=== PATIENT | male | born 1945 | race Caucasian/White ===

== ENCOUNTER 2019-07-15 12:15 | Emergency (ER) | payer MEDICARE, MEDICAID ==
[~2019-07-15] VITALS: Ht 180.3 cm; Wt 89.5 kg
--- NOTE | 2019-07-15 12:27 | ED Lower Extremity ---
General Chief Complaint: Trauma-Non Activation Stated Complaint: FALL Source: patient Exam Limitations: no limitations History of Present Illness Date Seen by Provider: Jul 15, 2019 Time Seen by Provider: 12:24 Initial Comments This 74-year-old male presents after he became tangled in the sheets and fell out of bed striking his right leg on the floor. Patient has a hematoma over the lateral aspect of the right leg and this is where his pain is located. Patient denies loss of sensation or range of motion of the affected right lower extremity. He denies other injury to his accident. Allergies and Home Medications Allergies Coded Allergies: No Known Drug Allergies (Unverified , 07/15/19) Patient Home Medication List Home Medication List Reviewed: Yes Review of Systems Constitutional: No chills EENTM: No ear pain Respiratory: No cough Cardiovascular: No chest pain Gastrointestinal: no symptoms reported Genitourinary: no symptoms reported Musculoskeletal: see HPI, other (leg pain over the impact area.) Skin: see HPI, other (ecchymosis over the lateral aspect midportion of the right leg) Psychiatric/Neurological: No Symptoms Reported Past Itgykum-Hrmwnf-Xnirjc Hx Past Med/Social Hx: Reviewed Nursing Past Med/Soc Hx Physical Exam Vital Signs Vital Signs - First Documented 07/15/19 12:15 Temp 98.1 Pulse 110 Resp 20 B/P (MAP) 138/74 (95) Pulse Ox 97 O2 Delivery Room Air Capillary Refill : Height, Weight, BMI Height: '" Weight: lbs. oz. kg; BMI Method: General Appearance: WD/WN, no apparent distress HEENT: normal ENT inspection Neck: normal inspection Cardiovascular: regular rate, rhythm Respiratory: lungs clear Gastrointestinal: normal bowel sounds, soft Back: normal inspection, vertebral tenderness Legs: right leg other (hematoma right leg lateral aspect) Neurologic/Psychiatric: no motor/sensory deficits, alert, normal mood/affect Skin: normal color, warm/dry, ecchymosis (lateral aspect right leg midportion) Progress/Results/Core Measures Results/Orders My Orders Orders - FELICIA ROLLINS MD Tibia Fibula 2 View Right (07/15/19 12:23) Vital Signs/I&O 07/15/19 12:15 Temp 98.1 Pulse 110 Resp 20 B/P (MAP) 138/74 (95) Pulse Ox 97 O2 Delivery Room Air Progress Progress Note : Time: 13:13 Progress Note X-ray of the right tibia and fibula failed to demonstrate evidence of fracture or dislocation. Departure Impression Primary Impression: Contusion of right leg Qualified Codes: S80.11XA - Contusion of right lower leg, initial encounter Disposition: HOME, SELF-CARE Condition: Unchanged Departure-Patient Inst. Decision time for Depature: 13:14 Referrals: [facility] Patient Instructions: Contusion (DC) Add. Discharge Instructions: Elevation and moist heat to the right leg. Ibuprofen and/or Tylenol for pain. Close follow-up with [facility] on Tuesday. Return if any problems or questions. All discharge instructions reviewed with patient and/or family. Voiced understanding. FELICIA ROLLINS MD Jul 15, 2019 12:27
--- NOTE | 2019-07-15 14:13 | Diagnostic Imaging Report ---
EXAMINATION: Right tibia and fibula radiographs, 2 views. COMPARISON: None. HISTORY: 74-year-old male, fall. Right tibia and fibula pain. FINDINGS: There are vascular calcifications. There is a small calcaneal heel spur. There is no identified acute fracture. There is no identified radiopaque foreign body. IMPRESSION: 1. No identified acute bony abnormality of the right tibia or fibula. 2. 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 Dictated by: Dictated on workstation # [id number]
[2019-07-15 14:30] VITALS: BP 138/74
== END 2019-07-15 14:30 | disposition home or self-care (01) ==
LOC: EDUNIT# 12:15 → ER FS 12:17
DX: S80.11XA Contusion of right lower leg, initial encounter (principal); W06.XXXA Fall from bed, initial encounter; W22.8XXA Striking against or struck by other objects, initial encounter
CPT/HCPCS: 73590

== ENCOUNTER 2021-04-05 21:40 | Emergency (ER) | payer MEDICARE, MEDICAID ==
--- NOTE | 2021-04-05 21:42 | ED Dyspnea ---
General Stated Complaint: SOB History of Present Illness Date Seen by Provider: April 05, 2021 Time Seen by Provider: 21:42 Initial Comments 76-year-old male presents with shortness of breath. Patient is on chronic 3 L of oxygen at home. Patient continues to smoke.. EMS reports that the home health care worker states that start about 2 hours prior to them being called. Patient is poor historian with some mild dementia. No reports of any chest pain. EMS reports patient did not appear short of breath upon arrival. His oxy gen saturations been in the upper 90s on his baseline 3 L. Allergies and Home Medications Allergies Coded Allergies: No Known Drug Allergies (Unverified , 07/15/19) Home Medications Albuterol Sulfate 18 Gm Hfa.aer.ad, 18 GM INH PRN Take 2 puffs every 4 hours as needed for wheezing or shortness of breath Prescribed by: LEONEL ORTIZ on 04/05/212329 Furosemide 20 Mg Tablet, 20 MG PO DAILY Please take in the morning Prescribed by: LEONEL ORTIZ on 04/05/212329 Prednisone 20 Mg Tab, 40 MG PO DAILY Prescribed by: LEONEL ORTIZ on 04/05/212329 Patient Home Medication List Home Medication List Reviewed: Yes Review of Systems Review of Systems Constitutional: No chills, No fever Respiratory: cough, short of breath Cardiovascular: No chest pain, No edema, No palpitations Musculoskeletal: no symptoms reported Skin: no symptoms reported Psychiatric/Neurological: No Symptoms Reported Past Loavdqi-Zqkhpi-Czglgl Hx Past Med/Social Hx: Reviewed Nursing Past Med/Soc Hx Patient Social History Type Used: Cigarettes 2nd Hand Smoke Exposure: No Recent Hopitalizations: No Immunizations Up To Date Tetanus Booster (TDap): Unknown Date of Pneumonia Vaccine: Jan 20, 2018 Seasonal Allergies Seasonal Allergies: No Past Medical History Surgeries: Yes (Cystoscopy, Cyst removal from left shoulder) Respiratory: Yes COPD Cardiac: Yes High Cholesterol, Hypertension Stroke, TIA Genitourinary: Yes (Chronic Kidney Disease Stage 3) Benign Prostatic Hyperpl, Renal Failure Gastrointestinal: No Musculoskeletal: No Endocrine: Yes Diabetes, Insulin dep HEENT: No Cancer: No Psychosocial: No Integumentary: No Blood Disorders: No Physical Exam Vital Signs Vital Signs - First Documented 04/05/21 21:40 Temp 37.1 Pulse 115 Resp 22 B/P (MAP) 147/65 (92) Pulse Ox 96 O2 Delivery Nasal Cannula O2 Flow Rate 3.00 Capillary Refill : Height, Weight, BMI Height: 5'11.00" Weight: 197lbs. 4.0oz. 89.665372ky; BMI Method:Actual General Appearance: No Apparent Distress, Other (disheveled, chronically ill ) Respiratory: Decreased Breath Sounds (mild diffuse ), Wheezing (mild ) Cardiovascular: No Edema, Tachycardia Gastrointestinal: Non Tender, Soft Extremity: Normal Range of Motion, No Pedal Edema Neurologic/Psychiatric: Alert, No Motor/Sensory Deficits Skin: No Rash; Other (unkept, dirty ) Progress/Results/Core Measures Results/Orders Lab Results Laboratory Tests Test 04/05/21 21:48 04/05/21 23:10 Range/Units White Blood Count 9.1 4.3-11.0 10^3/uL Red Blood Count 4.52 4.35-5.85 10^6/uL Hemoglobin 14.4 13.3-17.7 G/DL Hematocrit 44 40-54 % Mean Corpuscular Volume 98 80-99 FL Mean Corpuscular Hemoglobin 32 25-34 PG Mean Corpuscular Hemoglobin Concent 33 32-36 G/DL Red Cell Distribution Width 14.9 H 10.0-14.5 % Platelet Count 188 130-400 10^3/uL Mean Platelet Volume 8.7 7.4-10.4 FL Immature Granulocyte % (Auto) 1 % Neutrophils (%) (Auto) 72 42-75 % Lymphocytes (%) (Auto) 16 12-44 % Monocytes (%) (Auto) 9 0-12 % Eosinophils (%) (Auto) 2 0-10 % Basophils (%) (Auto) 0 0-10 % Neutrophils # (Auto) 6.6 1.8-7.8 X 10^3 Lymphocytes # (Auto) 1.5 1.0-4.0 X 10^3 Monocytes # (Auto) 0.8 0.0-1.0 X 10^3 Eosinophils # (Auto) 0.2 0.0-0.3 10^3/uL Basophils # (Auto) 0.0 0.0-0.1 10^3/uL Immature Granulocyte # (Auto) 0.1 0.0-0.1 10^3/uL Sodium Level 136 135-145 MMOL/L Potassium Level 5.3 H 3.6-5.0 MMOL/L Chloride Level 100 98-107 MMOL/L Carbon Dioxide Level 26 21-32 MMOL/L Anion Gap 10 5-14 MMOL/L Blood Urea Nitrogen 31 H 7-18 MG/DL Creatinine 1.67 H 0.60-1.30 MG/DL Estimat Glomerular Filtration Rate 40 BUN/Creatinine Ratio 19 Glucose Level 194 H 70-105 MG/DL Calcium Level 9.3 8.5-10.1 MG/DL Corrected Calcium 9.2 8.5-10.1 MG/DL Total Bilirubin 0.2 0.1-1.0 MG/DL Aspartate Amino Transf (AST/SGOT) 16 5-34 U/L Alanine Aminotransferase (ALT/SGPT) 16 0-55 U/L Alkaline Phosphatase 95 40-136 U/L Troponin I < 0.30 < 0.30 <0.30 NG/ML Pro-B-Type Natriuretic Peptide 1493.0 H <75.0 PG/ML Total Protein 7.1 6.4-8.2 GM/DL Albumin 4.1 3.2-4.5 GM/DL My Orders Orders - ORTIZ,LEONEL L DO Chest 1 View Ap/Pa Only (04/05/21 21:45) Cbc With Automated Diff (04/05/21 21:45) Comprehensive Metabolic Panel (04/05/21 21:45) Probnp Fs (04/05/21 21:45) Ekg Tracing (04/05/21 21:45) Monitor-Rhythm Ecg Trace Only (04/05/21 21:45) Troponin I Fs (04/05/21 21:45) Ed Iv/Invasive Line Start (04/05/21 21:50) Albuterol/Ipra Inhalation Soln (Duoneb I (04/05/21 22:00) Svn Small Volume Nebulizer (04/05/21 21:53) Nitroglycerin 0.4 Mg Btl 25's (Nitrostat (04/05/21 22:30) Troponin I Fs (04/05/21 23:06) Albuterol Pre-Mix Nebs (Rt) (Proventil (04/05/21 23:15) Svn Small Volume Nebulizer (04/05/21 23:06) Methylprednisolone Sod Succ (Solu-Medrol (04/05/21 23:15) Medications Given in ED Current Medications Medications Dose Ordered Sig/Mika Route Start Time Stop Time Status Last Admin Dose Admin Albuterol Sulfate 2.5 mg ONCE ONCE INH 04/05/21 23:15 04/05/21 23:16 DC 04/05/21 23:17 2.5 MG Albuterol/ Ipratropium 3 ml ONCE ONCE INH 04/05/21 22:00 04/05/21 22:01 DC 04/05/21 22:00 3 ML Methylprednisolone Sodium Succinate 80 mg ONCE ONCE IV 04/05/21 23:15 04/05/21 23:16 DC 04/05/21 23:17 80 MG Vital Signs/I&O 04/05/21 21:40 Temp 37.1 Pulse 115 Resp 22 B/P (MAP) 147/65 (92) Pulse Ox 96 O2 Delivery Nasal Cannula O2 Flow Rate 3.00 Progress Progress Note : Progress Note Patient symptoms improved significantly with DuoNeb. Patient's EKG shows diffuse ST depression that is likely old, I do not have a prior EKG to compare to. Patient denies any signs of chest pain or any recent chest pain. Patient will be given an albuterol inhaler along with 20 mg Lasix x3 days. He should follow-up with a primary care provider in a couple days. Patient is doing much better and ready to be discharged home. Initial ECG Impression Date: April 05, 2021 Initial ECG Impression Time: 21:49 Initial ECG Rate: 107 Initial ECG Rhythm: S.Tach, PVC Comment diffuse st depression, unsure age. Diagnostic Imaging Diagonstic Imaging: Xray Plain Films/CT/US/NM/MRI: chest Comments Mild pulmonary edema Reviewed: Reviewed by Me Departure Impression Primary Impression: COPD (chronic obstructive pulmonary disease) Qualified Codes: J44.9 - Chronic obstructive pulmonary disease, unspecified Additional Impression: Pulmonary edema Qualified Codes: J81.0 - Acute pulmonary edema Disposition: HOME, SELF-CARE Condition: Stable Departure-Patient Inst. Referrals: NO,LOCAL PHYSICIAN (PCP/Family) Primary Care Physician Patient Instructions: Chronic Obstructive Pulmonary Disease (COPD) (DC), CHF Add. Discharge Instructions: Follow-up with your primary care provider in 2 to 3 days for recheck of your symptoms and further outpatient manage Scripts Prednisone (Prednisone) 20 Mg Tab 40 MG PO DAILY, #6 TAB 0 Refills Prov: LEONEL ORTIZ DO 04/05/21 Albuterol Sulfate (Ventolin Hfa) 18 Gm Hfa.aer.ad 18 GM INH PRN for Shortness of Breath, #1 EA Take 2 puffs every 4 hours as needed for wheezing or shortness of breath Prov: LEONEL ORTIZ DO 04/05/21 Furosemide (Lasix) 20 Mg Tablet 20 MG PO DAILY for 3 Days, #3 TAB Please take in the morning Prov: LEONEL ORTIZ DO 04/05/21 LEONEL ORTIZ DO April 05, 2021 21:42
[2021-04-05 21:55] LABS: BASOPHILS % (AUTO) 0 % (0-10); EOSINOPHILS # (AUTO) 0.2 10^3/uL (0.0-0.3); EOSINOPHILS % (AUTO) 2 % (0-10); HEMATOCRIT 44 % (40-54); HEMOGLOBIN 14.4 G/DL (13.3-17.7); LYMPHOCYTES # (AUTO) 1.5 X 10^3 (1.0-4.0); LYMPHOCYTES % (AUTO) 16 % (12-44); MEAN CORPUSCULAR HEMOGLOBIN 32 PG (25-34); MEAN CORPUSCULAR HGB CONC 33 G/DL (32-36); MEAN CORPUSCULAR VOLUME 98 FL (80-99); MEAN PLATELET VOLUME 8.7 FL (7.4-10.4); MONOCYTES # (AUTO) 0.8 X 10^3 (0.0-1.0); MONOCYTES % (AUTO) 9 % (0-12); NEUTROPHILS # (AUTO) 6.6 X 10^3 (1.8-7.8); NEUTROPHILS % (AUTO) 72 % (42-75); PLATELET COUNT 188 10^3/uL (130-400); WHITE BLOOD COUNT 9.1 10^3/uL (4.3-11.0)
[2021-04-05] MEDS ORDERED: RT-ALBUTEROL/IPRATROPIUM 3 ML (DUONEB) VIAL INH ONE (22:00)
[2021-04-05 22:13] LABS: ALANINE AMINOTRANSFERASE 16 U/L (0-55); ALBUMIN 4.1 GM/DL (3.2-4.5); ALKALINE PHOSPHATASE 95 U/L (40-136); BILIRUBIN,TOTAL 0.2 MG/DL (0.1-1.0); BUN/CREATININE RATIO 19; CALCIUM 9.3 MG/DL (8.5-10.1); CARBON DIOXIDE 26 MMOL/L (21-32); CHLORIDE 100 MMOL/L (98-107); CREATININE SERUM 1.67 MG/DL (0.60-1.30); GFR ESTIMATED 40; GLUCOSE 194 MG/DL (70-105); POTASSIUM 5.3 MMOL/L (3.6-5.0); SODIUM 136 MMOL/L (135-145); TOTAL PROTEIN 7.1 GM/DL (6.4-8.2)
[2021-04-05] MEDS ORDERED: NITROGLYCERIN 0.4 MG SL TABS BTL 25'S SL ONE (22:30)
[2021-04-05] MEDS ORDERED: RT-ALBUTEROL SULF 2.5 MG/3 ML PRE-MIX VIAL INH ONE (23:15)
[2021-04-05] MEDS ORDERED: methylPREDNISolone 40 MG/ML (Solu-MEDROL) VIAL IV ONE (23:15)
[2021-04-05] MEDS ORDERED: FURO-125 PO (23:30)
[2021-04-05] MEDS ORDERED: ALBU18HF2 INH (23:30)
[2021-04-05] MEDS ORDERED: PRD20T PO (23:30)
[2021-04-05 23:54] VITALS: BP 104/39
[2021-04-06] MEDS ORDERED: RT-ALBUTEROL/IPRATROPIUM 3 ML (DUONEB) VIAL ONE (05:06)
--- NOTE | 2021-04-06 05:32 | Diagnostic Imaging Report ---
INDICATION: Shortness of air. COMPARISON: None FINDINGS: Two frontal radiographic views of the chest were obtained and show borderline prominent cardiac silhouette and mildly prominent pulmonary vasculature. Lungs also show mild diffuse prominence of the interstitium. Marco A B-lines are noted. There is no large effusion or pneumothorax. Osseous structures show no gross acute abnormalities. IMPRESSION: 1. Borderline cardiomegaly with mild vascular congestion and probable interstitial pulmonary edema. Findings are concerning for CHF. Clinical correlation is advised. Dictated by: Dictated on workstation # [id number]
[2021-04-06] MEDS ORDERED: LINA5TAB PO (16:11)
[2021-04-06] MEDS ORDERED: CLOP75TA28 PO (16:11)
[2021-04-06] MEDS ORDERED: AMLO-250 PO (16:11)
[2021-04-06] MEDS ORDERED: NABU500T8 PO (16:11)
[2021-04-06] MEDS ORDERED: LISI20TA26 PO (16:11)
[2021-04-06] MEDS ORDERED: LIRA0.6P3 SC (16:11)
[2021-04-06] MEDS ORDERED: MONT10TA32 PO (16:11)
[2021-04-06] MEDS ORDERED: FINA5TAB6 PO (16:11)
[2021-04-06] MEDS ORDERED: DONE5TAB30 PO (16:11)
[2021-04-06] MEDS ORDERED: TMSL.4C PO (16:11)
[2021-04-06] MEDS ORDERED: SIMV40TA25 PO (16:12)
== END 2021-04-06 00:15 | disposition home or self-care (01) ==
LOC: ER FS 21:40
DX: J44.9 Chronic obstructive pulmonary disease, unspecified (principal); J81.1 Chronic pulmonary edema; R00.0 Tachycardia, unspecified; I12.9 Hypertensive chronic kidney disease with stage 1 through stage 4 chronic kidney disease, or unspecified chronic kidney disease; E11.22 Type 2 diabetes mellitus with diabetic chronic kidney disease; N18.30 Chronic kidney disease, stage 3 unspecified; F03.90 Unspecified dementia, unspecified severity, without behavioral disturbance, psychotic disturbance, mood disturbance, and anxiety; Z99.81 Dependence on supplemental oxygen
CPT/HCPCS: 36415; 71045; 80053; 83880; 84484; 85025; 93005; 93041

== ENCOUNTER 2021-04-06 05:02 | Inpatient (IN) | payer MEDICARE, MEDICAID ==
[~2021-04-06] VITALS: Ht 180.3 cm; Wt 92.4 kg
[~2021-04-06 05:02] MED LIST: ALBU18HF2 INH; FURO-125 PO; PRD20T PO
--- NOTE | 2021-04-06 05:16 | ED Dyspnea ---
General Stated Complaint: SOB History of Present Illness Date Seen by Provider: April 06, 2021 Time Seen by Provider: 05:16 Initial Comments 76-year-old male presents with increasing shortness of breath. Patient seen by me last evening. At that time patient had some mild pulmonary edema and COPD mixed. Patient was feeling fine and was discharged home. Throughout the night patient's his symptoms significantly worsened with the symptoms significant worsen over the last hour or 2. When EMS arrived patient was sitting there s moking with a pulse ox in the low 70s. Patient is severely more increased work of breathing than when he was discharged. Patient received an albuterol in route. Patient denies chest pain. Allergies and Home Medications Allergies Coded Allergies: No Known Drug Allergies (Unverified , 07/15/19) Home Medications Albuterol Sulfate 18 Gm Hfa.aer.ad, 18 GM INH PRN Take 2 puffs every 4 hours as needed for wheezing or shortness of breath Prescribed by: LEONEL ORTIZ on 04/05/212329 Furosemide 20 Mg Tablet, 20 MG PO DAILY Please take in the morning Prescribed by: LEONEL ORTIZ on 04/05/212329 Prednisone 20 Mg Tab, 40 MG PO DAILY Prescribed by: LEONEL ORTIZ on 04/05/212329 Patient Home Medication List Home Medication List Reviewed: Yes Review of Systems Review of Systems Constitutional: No chills Respiratory: cough, dyspnea on exertion, short of breath Cardiovascular: No chest pain, No palpitations Genitourinary: no symptoms reported Musculoskeletal: no symptoms reported Skin: no symptoms reported Psychiatric/Neurological: No Symptoms Reported Past Woxadpx-Idiqyu-Lrcfqb Hx Past Med/Social Hx: Reviewed Nursing Past Med/Soc Hx Patient Social History Type Used: Cigarettes 2nd Hand Smoke Exposure: No Recent Hopitalizations: No Immunizations Up To Date Tetanus Booster (TDap): Unknown Date of Pneumonia Vaccine: Jan 20, 2018 Seasonal Allergies Seasonal Allergies: No Past Medical History Surgeries: Yes (Cystoscopy, Cyst removal from left shoulder) Respiratory: Yes COPD Cardiac: Yes High Cholesterol, Hypertension Stroke, TIA Genitourinary: Yes (Chronic Kidney Disease Stage 3) Benign Prostatic Hyperpl, Renal Failure Gastrointestinal: No Musculoskeletal: No Endocrine: Yes Diabetes, Insulin dep HEENT: No Cancer: No Psychosocial: No Integumentary: No Blood Disorders: No Physical Exam Vital Signs Vital Signs - First Documented 04/06/21 05:12 Temp 36.1 Pulse 150 Resp 30 B/P (MAP) 128/78 (95) Pulse Ox 84 O2 Delivery Nasal Cannula O2 Flow Rate 6.00 Capillary Refill : Height, Weight, BMI Height: 5'11.00" Weight: 197lbs. 4.0oz. 89.756884if; BMI Method:Actual General Appearance: Moderate Distress Respiratory: Accessory Muscle Use, Decreased Breath Sounds Cardiovascular: Tachycardia Gastrointestinal: Non Tender, Soft Neurologic/Psychiatric: Alert, Normal Mood/Affect Focused Exam Lactate Level 04/06/21 05:45: Lactic Acid Level 2.38*H Lactic Acid Level Laboratory Tests Test 04/06/21 05:45 Lactic Acid Level 2.38 MMOL/L (0.50-2.00) *H Progress/Results/Core Measures Results/Orders Lab Results Laboratory Tests Test 04/06/21 05:23 04/06/21 05:41 04/06/21 05:45 Range/Units Troponin I 0.46 *H <0.30 NG/ML Blood Gas Puncture Site LEFT RADIAL Blood Gas Patient Temperature Arterial Blood pH 7.20 *L 7.37-7.43 Arterial Blood Partial Pressure CO2 57 H 35-45 MMHG Arterial Blood Partial Pressure O2 86 79-93 MMHG Arterial Blood HCO3 22 L 23-27 MMOL/L Arterial Blood Total CO2 24.0 21.0-31.0 MMOL/L Arterial Blood Oxygen Saturation 94 94-100 % Arterial Blood Base Excess -6.3 L -2.5-2.5 MMOL/L Malvin Test OK Blood Gas Ventilator Setting Blood Gas Inspired Oxygen 80 Lactic Acid Level 2.38 *H 0.50-2.00 MMOL/L My Orders Orders - ANGELLEONEL L DO Arterial Blood Gas (04/06/21 05:16) Troponin I Fs (04/06/21 05:16) Albuterol/Ipra Inhalation Soln (Duoneb I (04/06/21 05:30) Svn Small Volume Nebulizer (04/06/21 05:16) Bipap (Bilevel) Set Up (04/06/21 05:16) Chest 1 View Ap/Pa Only (04/06/21 05:16) Adenosine Injection (Adenocard Injection (04/06/21 05:30) Ns (Ivpb) (Sodium Chloride 0.9%) (04/06/21 05:23) Ed Iv/Invasive Line Start (04/06/21 05:34) Ns (Ivpb) (Sodium Chloride 0.9%) (04/06/21 05:45) Lactic Acid Analyzer (04/06/21 05:34) Blood Culture (04/06/21 05:34) Ceftriaxone For Iv Use (Rocephin For I (04/06/21 05:45) Azithromycin Injection (Zithromax Inject (04/06/21 05:45) Nitroglycerin 0.4 Mg Btl 25's (Nitrostat (04/06/21 05:42) Ekg Tracing (04/06/21 05:58) Ekg Tracing (04/06/21 06:02) Aspirin Chewable Tablet (Baby Aspirin Ch (04/06/21 06:15) Enoxaparin Injection (Lovenox Injection) (04/06/21 06:15) Arterial Blood Gas (04/06/21 06:11) Medications Given in ED Current Medications Medications Dose Ordered Sig/Mika Route Start Time Stop Time Status Last Admin Dose Admin Albuterol/ Ipratropium 3 ml ONCE ONCE INH 04/06/21 05:30 04/06/21 05:31 DC 04/06/21 05:28 3 ML Aspirin 324 mg ONCE ONCE PO 04/06/21 06:15 04/06/21 06:16 DC 04/06/21 06:15 324 MG Azithromycin 500 mg/Sodium Chloride 255 ml @ 250 mls/hr ONCE ONCE IV 04/06/21 05:45 04/06/21 06:46 04/06/21 05:52 250 MLS/HR Ceftriaxone Sodium 1000 mg/ Sterile Water 10 ml @ 200 mls/hr ONCE ONCE IV 04/06/21 05:45 04/06/21 05:47 DC 04/06/21 05:49 200 MLS/HR Enoxaparin Sodium 75 mg ONCE ONCE SC 04/06/21 06:15 04/06/21 06:16 DC 04/06/21 06:15 75 MG Sodium Chloride 250 ml @ 999 mls/hr Q16M ONCE IV 04/06/21 05:45 04/06/21 06:00 DC 04/06/21 05:48 999 MLS/HR Vital Signs/I&O 04/06/21 04/06/21 04/06/21 05:12 05:35 06:34 Temp 36.1 Pulse 150 115 Resp 30 26 B/P (MAP) 128/78 (95) 98/57 Pulse Ox 84 99 O2 Delivery Nasal Cannula NIV Bilevel O2 Flow Rate 6.00 80.00 Progress Progress Note : Progress Note Patient with significantly worsening x-ray. Patient with increased ischemia on EKG that is likely demand ischemia. Patient was placed on BiPAP. His O2 saturations improved to 97%. He felt much better and was fatigued. Patient continually denies chest pain. Patient with mixed picture of pneumonia and CHF. He will be admitted to [facility] ICU for further treatment evaluation. I discussed with Dr. Abraham who was in agreement with plan. Initial ECG Impression Date: April 06, 2021 Initial ECG Impression Time: 05:16 Initial ECG Rhythm: S.Tach Comment Tachycardia, diffuse ST depression. EKG : EKG Time: 06:00 Rate: 119 Rhythm: S.Tach Comment Patient with sinus tachycardia, diffuse ST depression likely demand ischemia. QTC slightly prolonged at 410. Diagnostic Imaging Diagonstic Imaging: Xray Comments DICATION: Dyspnea COMPARISON: 04/05/2021 FINDINGS: Single frontal radiographic view of the chest was obtained and demonstrates interval development of more consolidative alveolar opacities within the right midlung. There may be small right basilar effusion. There is no large effusion on the left. No pneumothorax is seen on either side. Note is again made of borderline enlargement of the cardiac silhouette with pulmonary vascular congestion and probable interstitial pulmonary edema. IMPRESSION: 1. Interval development of more confluent alveolar pneumonia versus pulmonary edema in the right midlung. Continued follow-up is recommended. 2. Background borderline cardiomegaly with vascular congestion and interstitial edema. Reviewed: Reviewed by Me, Reviewed/Discussed Critical Care Note Critical Care Total Time (minutes) 60 Departure Impression Primary Impression: Pneumonia Qualified Codes: J18.9 - Pneumonia, unspecified organism Additional Impression: Pulmonary edema cardiac cause Disposition: 30 STILL A PATIENT Condition: Critical Admissions Decision to Admit Reason: Admit from ER (General) Decision to Admit/Date: April 06, 2021 Time/Decision to Admit Time: 06:15 Departure-Patient Inst. Referrals: [facility] (PCP/Family) Primary Care Physician LEONEL ORTIZ DO April 06, 2021 05:16
[2021-04-06] MEDS ORDERED: NS (IVPB) 250 ML ONE (05:23)
[2021-04-06] MEDS: ADENOSINE 6 MG/2 ML (ADENOCARD) VIAL IV ONE ×2 (05:28→06:37)
[2021-04-06] MEDS ORDERED: RT-ALBUTEROL/IPRATROPIUM 3 ML (DUONEB) VIAL INH ONE (05:30)
--- NOTE | 2021-04-06 05:40 | Diagnostic Imaging Report ---
INDICATION: Dyspnea COMPARISON: 04/05/2021 FINDINGS: Single frontal radiographic view of the chest was obtained and demonstrates interval development of more consolidative alveolar opacities within the right midlung. There may be small right basilar effusion. There is no large effusion on the left. No pneumothorax is seen on either side. Note is again made of borderline enlargement of the cardiac silhouette with pulmonary vascular congestion and probable interstitial pulmonary edema. IMPRESSION: 1. Interval development of more confluent alveolar pneumonia versus pulmonary edema in the right midlung. Continued follow-up is recommended. 2. Background borderline cardiomegaly with vascular congestion and interstitial edema. Dictated by: Dictated on workstation # [id number]
[2021-04-06] MEDS ORDERED: NITROGLYCERIN 0.4 MG SL TABS BTL 25'S SL STA (05:42)
[2021-04-06] MEDS ORDERED: AZITHROMYCIN INJECTION 500 MG in NS (IVPB) 250 ML IV ONE (05:45)
[2021-04-06] MEDS ORDERED: cefTRIAXone FOR IV USE 1,000 MG in WATER (STERILE) FOR INJECTION 10 ML IV ONE (05:45)
[2021-04-06] MEDS ORDERED: NS (IVPB) 250 ML IV ONE (05:45)
[2021-04-06] MEDS ORDERED: ENOXAPARIN 80 MG/0.8 ML (LOVENOX) SYR SC ONE (06:15)
[2021-04-06] MEDS ORDERED: ASPIRIN 81 MG CHEW (CHILDREN'S ASA) PO ONE (06:15)
[2021-04-06 06:21] LABS: ABG BASE EXCESS -6.3 MMOL/L (-2.5-2.5); ABG OXYGEN SATURATION 94 % (94-100); ABG PCO2 57 MMHG (35-45); ABG PO2 86 MMHG (79-93); ALLENS TEST OK
[2021-04-06 06:22] LABS: INSPIRED O2 80
[2021-04-06 08:37] VITALS: BP 137/68
[2021-04-06 08:46] LABS: ABG BASE EXCESS -4.5 MMOL/L (-2.5-2.5); ABG OXYGEN SATURATION 93 % (94-100); ABG PCO2 43 MMHG (35-45); ABG PO2 71 MMHG (79-93); ABG TCO2 22.3 MMOL/L (21.0-31.0)
[2021-04-06 08:49] LABS: ALLENS TEST YES-POS
[2021-04-06 08:50] LABS: INSPIRED O2 30%; PATIENT TEMP 36.4; VENTILATOR NO
--- NOTE | 2021-04-06 09:09 | Pulmonary Consultation ---
HERIBERTO AUSTIN MED STUDENT 04/06/21 0909: History of Present Illness History of Present Illness Date Seen by Provider: April 06, 2021 Time Seen by Provider: 09:06 Date of Admission History of Present Illness Patient is a 76 year old white male who presented to the ED again this morning via EMS after presenting last night to the ED for chief complaint of SOB as well. He states that since leaving the ED last night and going home his SOB has acutely worsened and began having more difficulty breathing. When EMS arrived he was found to be sitting and smoking and his initial oxygen sat was in the low 70's. En route he received an albuterol treatment. Patient admitted with a diagnosis of pneumonia and CHF. Patient is difficult to understand at this time as he's on the BIPAP, but is cooperative and able to follow simple commands. States his mouth is dry and would like some water. Is denying chest pain, cough, fevers, chills, nausea, and vomiting. Allergies and Home Medications Allergies Coded Allergies: No Known Drug Allergies (Unverified , 07/15/19) Home Medications Amlodipine Besylate 5 Mg Tablet, 5 MG PO DAILY, (Reported) Clopidogrel Bisulfate 75 Mg Tablet, 75 MG PO DAILY, (Reported) Donepezil HCl 5 Mg Tablet, 5 MG PO HS, (Reported) Finasteride 5 Mg Tablet, 5 MG PO DAILY, (Reported) Linagliptin 5 Mg Tablet, 5 MG PO DAILY, (Reported) Liraglutide 0.6 Mg/0.1 Ml Pen.injctr, 1.2 MG SC DAILY, (Reported) Lisinopril 20 Mg Tablet, 20 MG PO DAILY, (Reported) Montelukast Sodium 10 Mg Tablet, 10 MG PO HS, (Reported) Nabumetone 500 Mg Tablet, 500 MG PO BID, (Reported) Simvastatin 40 Mg Tablet, 40 MG PO HS, (Reported) Tamsulosin HCl 0.4 Mg Cap, 0.4 MG PO DAILY, (Reported) Past Qxqvucd-Ujhwxr-Fzgrlq Hx Past Med/Social Hx: Reviewed Nursing Past Med/Soc Hx Patient Social History Alcohol Use: Denies Use Smoking Status: Current Everyday Smoker Type Used: Cigarettes 2nd Hand Smoke Exposure: No Recent Infectious Disease Expo: No Recent Hopitalizations: No Have you traveled recently?: No Alcohol Use?: No Immunizations Up To Date Tetanus Booster (TDap): Unknown Date of Pneumonia Vaccine: Jan 20, 2018 Date of Influenza Vaccine: Aug 14, 2020 Seasonal Allergies Seasonal Allergies: No Past Medical History Surgeries: Yes (Cystoscopy, Cyst removal from left shoulder) Respiratory: Yes COPD Cardiac: Yes High Cholesterol, Hypertension Stroke, TIA Genitourinary: Yes (Chronic Kidney Disease Stage 3) Benign Prostatic Hyperpl, Renal Failure Gastrointestinal: No Musculoskeletal: No Endocrine: Yes Diabetes, Insulin dep HEENT: No Cancer: No Psychosocial: No Integumentary: No Blood Disorders: No Review of Systems Constitutional: No: Fever, Chills Eyes: No: Pain, Vision change ENT: No: Ear pain, Nose pain, Mouth pain, Mouth swelling Respiratory: Shortness of breath; No: Cough, Dry, Hemoptysis Cardiovascular: No: Chest Pain, Palpitations, Edema Gastrointestinal: No: Nausea, Vomiting, Abdominal Pain Genitourinary: No Dysuria, No Frequency Musculoskeletal: No: neck pain, back pain Skin: No: Rash, Lesions Neurological: No: Weakness, Numbness Sepsis Event Evaluation Height, Weight, BMI Height: 5'11.00" Weight: 197lbs. 4.0oz. 89.917125jn; 23.07 BMI Method:Actual Exam Exam Vital Signs Date Time Temp Pulse Resp B/P (MAP) Pulse Ox O2 Delivery O2 Flow Rate FiO2 04/06/21 08:39 36.4 107 20 118/82 (94) 93 NIV Bilevel 30.00 04/06/21 08:37 108 21 94 30.00 04/06/21 06:49 116 28 100/59 99 NIV Bilevel 04/06/21 06:34 115 26 98/57 99 NIV Bilevel 04/06/21 05:35 80.00 04/06/21 05:12 36.1 150 30 128/78 (95) 84 Nasal Cannula 6.00 I & O 04/06/21 07:00 Intake Total 515 ml Balance 515 ml Height & Weight Height: 5'11.00" Weight: 197lbs. 4.0oz. 89.007128du; 23.07 BMI Method:Actual General Appearance: Chronically ill, Mild Distress, Other (BIPAP currently/Vitals stable) HEENT: PERRL/EOMI, Moist Mucous Membranes; No Scleral Icterus (L), No Scleral Icterus (R) Neck: Normal Inspection, Non Tender Respiratory: Chest Non Tender, Accessory Muscle Use, Crackles (bilaterally, r ight greater than left), Decreased Breath Sounds; No Wheezing Cardiovascular: No Edema, Normal Peripheral Pulses, Tachycardia Capillary Refill: Greater Than 3 Seconds Peripheral Pulses: 1+ Dorsalis Pedis (R), 1+ Left Dors-Pedis (L); 2+ Radial Pulses (R), 2+ Radial Pulses (L) Gastrointestinal: normal bowel sounds, non tender, soft; No distended, No guarding, No rebound Extremity: Normal Capillary Refill, Normal Inspection, No Calf Tenderness, No Pedal Edema Neurologic/Psychiatric: Alert Skin: Normal Color, Warm/Dry Lymphatic: No Adenopathy Assessment/Plan Assessment/Plan CHF -elevated pro BNP of 1493 -BNP 254 -Diurese Pulmonary edema -BIPAP, titrate as tolerated -diurese Pneumonia -Bejarano culture -procalcitonin negative -WBC 9.5 -CXR concerning for alveolar PNA vs pulm edema R mid lung -Rocephin an azithromycin started Elevated troponin- NSTEMI -trending upward from 0.46 to 23.884 -consult cardiology -continue to monitor Hyperkalemia -1 amp D50 and 10 units regular insulin IVP -continue to monitor Acute on chronic renal failure -creatinine 1.67 yesterday upt to 2.26 today -continue to monitor COPD -continue to monitor Insulin dependent diabetes mellitus -blood glucoses 300-400's -SSI -monitor HTN -monitor YASMEEN PENA DO 04/06/21 1221: Allergies and Home Medications Allergies Coded Allergies: No Known Drug Allergies (Unverified , 07/15/19) Home Medications Amlodipine Besylate 5 Mg Tablet, 5 MG PO DAILY, (Reported) Clopidogrel Bisulfate 75 Mg Tablet, 75 MG PO DAILY, (Reported) Donepezil HCl 5 Mg Tablet, 5 MG PO HS, (Reported) Finasteride 5 Mg Tablet, 5 MG PO DAILY, (Reported) Linagliptin 5 Mg Tablet, 5 MG PO DAILY, (Reported) Liraglutide 0.6 Mg/0.1 Ml Pen.injctr, 1.2 MG SC DAILY, (Reported) Lisinopril 20 Mg Tablet, 20 MG PO DAILY, (Reported) Montelukast Sodium 10 Mg Tablet, 10 MG PO HS, (Reported) Nabumetone 500 Mg Tablet, 500 MG PO BID, (Reported) Simvastatin 40 Mg Tablet, 40 MG PO HS, (Reported) Tamsulosin HCl 0.4 Mg Cap, 0.4 MG PO DAILY, (Reported) Review of Systems Time Seen by Provider: 12:21 Assessment/Plan Assessment/Plan Acute respiratory failure -Currently requiring BiPAP -Repeat ABG CHF -elevated pro BNP of 1493 -BNP 254 -Diurese Pulmonary edema r/o PNA -PCT is negative. No leukocytosis -BIPAP, titrate as tolerated -diurese Elevated troponin- NSTEMI s/p Cath -trending upward from 0.46 to 23.884 -cardiology -continue to monitor Hyperkalemia -Repeat Chem now. Acute on chronic renal failure -creatinine 1.67 yesterday upt to 2.26 today -continue to monitor COPD -continue to monitor Insulin dependent diabetes mellitus -blood glucoses 300-400's -SSI -monitor HTN -monitor Supervisory-Addendum Brief Verification & Attestation Participated in pt care: history, MDM, physical, procedure Personally performed: exam, history, MDM, supervision of care Care discussed with: Medical Student Procedures: n/a Results interpretation: Verified all documentation Verification and Attestation of Medical Student E/M Service A medical student performed and documented this service in my presence. I reviewed and verified all information documented by the medical student and made modifications to such information, when appropriate. I personally performed the physical exam and medical decision making. Yasmeen Pena, April 09, 2021,12:28 HERIBERTO AUSTIN MED STUDENT April 06, 2021 09:09 YASMEEN PENA DO April 06, 2021 12:21
[2021-04-06 09:27] LABS: BASOPHILS % (AUTO) 0 % (0-10); EOSINOPHILS % (AUTO) 0 % (0-10); HEMATOCRIT 45 % (40-54); HEMOGLOBIN 14.4 g/dL (13.3-17.7); LYMPHOCYTES # (AUTO) 0.3 10^3/uL (1.0-4.0); LYMPHOCYTES % (AUTO) 3 % (12-44); MEAN CORPUSCULAR HEMOGLOBIN 32 pg (25-34); MEAN CORPUSCULAR HGB CONC 32 g/dL (32-36); MEAN CORPUSCULAR VOLUME 100 fL (80-99); MEAN PLATELET VOLUME 9.3 fL (9.0-12.2); MONOCYTES # (AUTO) 0.2 10^3/uL (0.0-1.0); MONOCYTES % (AUTO) 2 % (0-12); NEUTROPHILS # (AUTO) 8.8 10^3/uL (1.8-7.8); NEUTROPHILS % (AUTO) 93 % (42-75); PLATELET COUNT 182 10^3/uL (130-400); WHITE BLOOD COUNT 9.5 10^3/uL (4.3-11.0)
[2021-04-06 09:38] LABS: CALCIUM 9.4 MG/DL (8.5-10.1)
[2021-04-06 09:42] LABS: CREATININE SERUM 2.26 MG/DL (0.60-1.30)
[2021-04-06 09:44] VITALS: BP 118/82
[2021-04-06] MEDS ORDERED: RT-ALBUTEROL/IPRATROPIUM 3 ML (DUONEB) VIAL INH PRN (10:00)
[2021-04-06] MEDS: RT-ALBUTEROL/IPRATROPIUM 3 ML (DUONEB) VIAL INH SCH ×4 (10:15→22:10)
[2021-04-06 10:19] VITALS: BP 115/68
[2021-04-06] MEDS ORDERED: fentaNYL INJ 100 MCG/2 ML AMP ONE (10:51)
[2021-04-06] MEDS: inSUlin ASPART (NovoLOG) 1 UNIT/0.01 ML (CHARGE PER UNIT) SC SCH ×4 (10:51→23:50)
[2021-04-06] MEDS ORDERED: LIDOCAINE 1% INJ 20 ML 20 ML VIAL ONE (10:51)
[2021-04-06] MEDS ORDERED: MIDAZOLAM 5 MG/5 ML (VERSED) VIAL ONE (10:51)
[2021-04-06] MEDS ORDERED: HEParin (CATH LAB) 2,000 ML IV ONE (10:52)
[2021-04-06] MEDS ORDERED: NS IV 1000 ML 1,000 ML ONE (10:52)
--- NOTE | 2021-04-06 10:55 | Consultation-Cardiology ---
HPI-Cardiology Cardiology Consultation Date of Consultation 04/06/21 Date of Admission Time Seen by Provider: 10:46 Indication: Acute myocardial infarction HPI 76 years old gentleman with questionable history of coronary artery disease, history of diabetes mellitus and chronic renal insufficiency, seen in the emergency room yesterday with shortness of breath then returned to the emergency room by ambulance for worsening shortness of breath. Patient is unable to provide a full history. I was unable to obtain more history from him other than he was diabetic, denied any previous cardiac history, noted to have abnormal EKG and elevated troponin. He denied any chest pain. No syncope or near syncopal episodes Home Medications & Allergies Allergies: Coded Allergies: No Known Drug Allergies (Unverified , 07/15/19) Home Medication List Reviewed: Yes [facility] Hx Patient Social History Marital Status: Recreational Drug Use: No Smoking Status: Current Everyday Smoker Type Used: Cigarettes 2nd Hand Smoke Exposure: No Recent Hopitalizations: No Have you traveled recently?: No Alcohol Use?: No Immunizations Up To Date Tetanus Booster (TDap): Unknown Date of Pneumonia Vaccine: Jan 20, 2018 Date of Influenza Vaccine: Aug 14, 2020 Past Medical History Discussed below Family Medical History Family Medical Hx Noncontributory Review of Systems-General Review of Systems Constitutional: No chills; malaise EENTM: see HPI, no symptoms reported Respiratory: cough, dyspnea on exertion, short of breath Cardiovascular: see HPI; No chest pain, No edema, No Hx of Intervention, No palpitations, No syncope, No vascular heart diseas, No other Gastrointestinal: no symptoms reported, see HPI Genitourinary: no symptoms reported, see HPI Musculoskeletal: no symptoms reported, see HPI Skin: no symptoms reported, see HPI Psychiatric/Neurological: No Symptoms Reported, See HPI Reviewed Test Results Reviewed Test Results Lab Laboratory Tests Test 04/06/21 05:23 04/06/21 05:41 04/06/21 05:45 04/06/21 08:30 Range/Units Troponin I 0.46 *H <0.30 NG/ML Blood Gas Puncture Site LEFT RADIAL R RAD Blood Gas Patient Temperature 36.4 Arterial Blood pH 7.20 *L 7.30 *L 7.37-7.43 Arterial Blood Partial Pressure CO2 57 H 43 35-45 MMHG Arterial Blood Partial Pressure O2 86 71 L 79-93 MMHG Arterial Blood HCO3 22 L 21 L 23-27 MMOL/L Arterial Blood Total CO2 24.0 22.3 21.0-31.0 MMOL/L Arterial Blood Oxygen Saturation 94 93 L 94-100 % Arterial Blood Base Excess -6.3 L -4.5 L -2.5-2.5 MMOL/L Malvin Test OK YES-POS Blood Gas Ventilator Setting NO Blood Gas Inspired Oxygen 80 30% Lactic Acid Level 2.38 *H 0.50-2.00 MMOL/L Test 04/06/21 09:18 04/06/21 09:56 04/06/21 10:15 Range/Units White Blood Count 9.5 4.3-11.0 10^3/uL Red Blood Count 4.55 4.30-5.52 10^6/uL Hemoglobin 14.4 13.3-17.7 g/dL Hematocrit 45 40-54 % Mean Corpuscular Volume 100 H 80-99 fL Mean Corpuscular Hemoglobin 32 25-34 pg Mean Corpuscular Hemoglobin Concent 32 32-36 g/dL Red Cell Distribution Width 14.7 H 10.0-14.5 % Platelet Count 182 130-400 10^3/uL Mean Platelet Volume 9.3 9.0-12.2 fL Immature Granulocyte % (Auto) 2 % Neutrophils (%) (Auto) 93 H 42-75 % Lymphocytes (%) (Auto) 3 L 12-44 % Monocytes (%) (Auto) 2 0-12 % Eosinophils (%) (Auto) 0 0-10 % Basophils (%) (Auto) 0 0-10 % Neutrophils # (Auto) 8.8 H 1.8-7.8 10^3/uL Lymphocytes # (Auto) 0.3 L 1.0-4.0 10^3/uL Monocytes # (Auto) 0.2 0.0-1.0 10^3/uL Eosinophils # (Auto) 0.0 0.0-0.3 10^3/uL Basophils # (Auto) 0.0 0.0-0.1 10^3/uL Immature Granulocyte # (Auto) 0.2 H 0.0-0.1 10^3/uL Sodium Level 138 135-145 MMOL/L Potassium Level 6.0 H 3.6-5.0 MMOL/L Chloride Level 102 98-107 MMOL/L Carbon Dioxide Level 23 21-32 MMOL/L Anion Gap 13 5-14 MMOL/L Blood Urea Nitrogen 38 H 7-18 MG/DL Creatinine 2.26 H 0.60-1.30 MG/DL Estimat Glomerular Filtration Rate 28 BUN/Creatinine Ratio 17 Glucose Level 445 *H 70-105 MG/DL Calcium Level 9.4 8.5-10.1 MG/DL Troponin I 23.884 *H <0.028 NG/ML Procalcitonin 0.08 <0.10 NG/ML Glucometer 365 H 70-110 MG/DL Physical Exam Physical Exam Vital Signs Vital Signs - First Documented 04/06/21 04/06/21 05:12 08:15 Temp 36.1 Pulse 150 Resp 30 B/P (MAP) 128/78 (95) Pulse Ox 84 O2 Delivery Nasal Cannula O2 Flow Rate 6.00 FiO2 30 Capillary Refill : Greater Than 3 Seconds Height, Weight, BMI Height: 5'11.00" Weight: 197lbs. 4.0oz. 89.037492ed; 23.07 BMI Method:Actual General Appearance: Chronically ill, Moderate Distress, Other (BIPAP currently/Vitals stable) Eyes: Bilateral Eye Normal Inspection, Bilateral Eye PERRL, Bilateral Eye EOMI HEENT: PERRL/EOMI, Moist Mucous Membranes; No Scleral Icterus (L), No Scleral Icterus (R) Neck: Normal Inspection, Non Tender Respiratory: Chest Non Tender, Accessory Muscle Use, Crackles (bilaterally, right greater than left), Decreased Breath Sounds; No Wheezing Cardiovascular: No Edema, Normal Peripheral Pulses, Tachycardia Gastrointestinal: Non Tender, Soft Back: Normal Inspection, No CVA Tenderness, No Vertebral Tenderness Extremity: Normal Capillary Refill, Normal Inspection, No Calf Tenderness, No Pedal Edema Neurologic/Psychiatric: Alert Skin: Normal Color, Warm/Dry Lymphatic: No Adenopathy A/P-Cardiology Admission Diagnosis Acute respiratory failure Coronary artery disease Congestive heart failure Acute renal failure Assessment/Plan Acute respiratory failure, currently on BiPAP, most probably pulmonary edema, underlying pneumonia is being covered with antibiotics. Managed by primary care team Non-ST elevation myocardial infarction, had ST depression in the anterolateral leads, left ventricular hypertrophy pattern. Elevation in troponin, started on aspirin, Plavix and Lovenox. I recommended cardiac catheterization and patient is at high risk of progressing into end-stage kidney disease and hemodialysis. Patient is unable to provide consent, multiple attempt to reach next of kin has failed. I discussed with Dr. Pardo regarding the pros and cons of the procedure, we both in agreement of the importance of proceeding with a cardiac catheterization. Hypertension, starting low-dose beta-blockers, monitor blood pressure Hyperlipidemia, I will evaluate lipid profile, started on Lipitor 80 mg COPD, followed and managed by primary care physician Diabetes mellitus, poorly controlled, managed by primary care physician Chronic kidney disease stage IV, acute renal failure, probably acute tubular necrosis at this time. We will use IV fluid with a cardiac cath then initiate Lasix Congestive heart failure, acute left ventricular systolic dysfunction, probably ischemic in nature Morbid obesity Tobaccoism, educated on smoking cessation MICHAEL NUNEZ MD April 06, 2021 10:55
[2021-04-06] MEDS: CLOPIDOGREL 75 MG (PLAVIX) TABLET PO SCH (11:07)
[2021-04-06 11:13] LABS: BAND NEUTROPHILS 5 %; BASOPHILS % (MANUAL) 0 %; EOSINOPHILS % (MANUAL) 0 %; LYMPHOCYTES % (MANUAL) 6 %; MONOCYTES % (MANUAL) 1 %; NEUTROPHILS % (MANUAL) 88 %
[2021-04-06 11:14] LABS: RBC MORPH NORMAL
[2021-04-06] MEDS ORDERED: HEParin 1000 UNIT/ML (10ML VIAL) FOR BOLUS ONE (11:33)
--- NOTE | 2021-04-06 11:52 | Conscious Sedation/ASA ---
Conscious Sedation Pre-Proced Time 11:52 ASA Score 3 For ASA 3 and 4: Consider anesthesia and medical clearance. Also, for patients with a history of failed moderate sedation consider anesthesia. Airway Lungs Heart ASA score ASA 1: a normal healthy patient ASA 2: a patient with a mild systemic disease (mid diabetes, controlled hypertension, obesity ASA 3: a patient with a severe systemic disease that limits activity (angina, COPD, prior Myocardial infarction) x ASA 4: a patient with an incapacitating disease that is a constant threat to life (CHF, renal failure) ASA 5: a moribund patient not expected to survive 24 hrs. (ruptured aneurysm) ASA 6: a declared brain- patient whose organs are being harvested. For emergent operations, add the letter E after the classification Mallampati Classification Grade 3 Sedation Plan Analgesia, Amnesia, Plan communicated to team members, Discussed options with patient/fam, Discussed risks with patient/fam The patient is an appropriate candidate to undergo the planned procedure, sedation, and anesthesia. The patient immediately re-assessed prior to indication. MICHAEL NUNEZ MD April 06, 2021 11:52 am
--- NOTE | 2021-04-06 11:57 | Cardiac Cath Report ---
Cardiac Cath Report Physician (s)/Lead Radiologic Technologist (s) Physician MICHAEL NUNEZ MD Pre-Procedure Diagnosis Pre-Procedure Diagnosis: Coronary artery disease Post-Procedure Note Procedure Start Date: April 06, 2021 Name of Procedure: Left heart catheterization Findings/Procedure Note PROCEDURE NOTE: 76 years old gentleman admitted with non-ST elevation myocardial infarction, acute respiratory failure, acute renal failure, decided to proceed with cardiac catheterization possible PTCA. After explaining the procedure to the patient, all pros and cons were explained, all questions were answered. The patient signed the consent and then he was placed on the cardiac catheterization laboratory. Groin was prepped SL fashion local anesthesia was used. Sheath placed in the right femoral artery. Cherelle right and left catheter were used to access the coronary system. Cherelle right catheter prolapsed to the left ventricular cavity, pressure was measured, pullback LV to aorta was done, no left ventriculogram was done. At the end of the procedure the sheath was removed. Closure device was deployed FINDINGS: Hemodynamics LV Aorta ANATOMY: Left Main has mild to moderate stenosis at the midportion nonobstructive disease Left Anterior Descending is heavily calcified artery with moderate stenosis at the midportion. Left Circumflex is totally occluded at the ostium, getting filled by collaterals Right Coronary Artery is totally occluded at the midportion, getting filled by collaterals LV Gram was not done, pressure was measured CONCLUSION: 1. Severe multivessel coronary artery disease including total occlusion of the mid right coronary artery, ostial circumflex artery, moderate to severe stenosis at the mid LAD and moderate stenosis at the mid left main 2. Elevated left ventricular end-diastolic pressure of 29 DISCUSSION AND RECOMMENDATION: Maximize medical therapy, patient has underlying renal failure and dementia, not a suitable candidate for bypass surgery. Anesthesia Type: Conscious Sedation Estimated blood loss (mL): 15 ml Contrast Amount: 22 ml Total Radiation Dose: 601 mGy Post-Procedure Diagnosis Post-operative diagnosis: Non-ST elevation myocardial infarction Coronary artery disease Congestive heart failure Hypertension MICHAEL NUNEZ MD April 06, 2021 11:57
[2021-04-06] MEDS ORDERED: PATIENT MAY USE OWN MEDS, ALL PO SCH (12:00)
[2021-04-06 12:18] LABS: ABG BASE EXCESS -1.7 MMOL/L (-2.5-2.5); ABG OXYGEN SATURATION 91 % (94-100); ABG PCO2 41 MMHG (35-45); ABG PH 7.37 (7.37-7.43); ABG PO2 58 MMHG (79-93); ABG TCO2 24.4 MMOL/L (21.0-31.0); ALLENS TEST YES-POS; INSPIRED O2 25% BIPAP; PATIENT TEMP 35.9; VENTILATOR NO
[2021-04-06 12:45] LABS: BASOPHILS % (AUTO) 0 % (0-10); EOSINOPHILS % (AUTO) 0 % (0-10); HEMATOCRIT 42 % (40-54); HEMOGLOBIN 13.3 g/dL (13.3-17.7); LYMPHOCYTES # (AUTO) 0.5 10^3/uL (1.0-4.0); LYMPHOCYTES % (AUTO) 5 % (12-44); MEAN CORPUSCULAR HEMOGLOBIN 32 pg (25-34); MEAN CORPUSCULAR HGB CONC 32 g/dL (32-36); MEAN CORPUSCULAR VOLUME 99 fL (80-99); MEAN PLATELET VOLUME 9.2 fL (9.0-12.2); MONOCYTES # (AUTO) 0.4 10^3/uL (0.0-1.0); MONOCYTES % (AUTO) 4 % (0-12); NEUTROPHILS # (AUTO) 8.6 10^3/uL (1.8-7.8); NEUTROPHILS % (AUTO) 90 % (42-75); PLATELET COUNT 162 10^3/uL (130-400); WHITE BLOOD COUNT 9.6 10^3/uL (4.3-11.0)
[2021-04-06 12:56] LABS: ALBUMIN 3.8 GM/DL (3.2-4.5); POTASSIUM 5.5 MMOL/L (3.6-5.0)
[2021-04-06 12:57] LABS: CALCIUM 9.2 MG/DL (8.5-10.1)
[2021-04-06 12:59] LABS: TOTAL PROTEIN 6.3 GM/DL (6.4-8.2)
[2021-04-06 13:00] LABS: BILIRUBIN,TOTAL 0.3 MG/DL (0.1-1.0)
[2021-04-06 13:02] LABS: CREATININE SERUM 2.12 MG/DL (0.60-1.30); PHOSPHORUS 3.3 MG/DL (2.3-4.7)
[2021-04-06 13:05] LABS: MAGNESIUM 1.8 MG/DL (1.6-2.4)
[2021-04-06] MEDS: NS IV 1000 ML 1,000 ML IV SCH ×2 (13:21→14:27)
[2021-04-06 14:49] VITALS: BP 104/69
--- NOTE | 2021-04-06 15:02 | History & Physical-Hospitalist ---
History of Present Illness HPI/Chief Complaint Kendall Morrell is a 76-year-old male with dementia, chronic kidney disease, other past medical history unknown, who presented with shortness of breath. He is a poor historian due to his dementia. It is also difficult to obtain history as he has respiratory failure on BiPAP. He has a home health care worker who saw him and he was becoming short of breath. He denies any chest pain. He denies any cough. He has no other complaints or concerns. Source: patient Exam Limitations: clinical condition Date Seen 04/06/21 Time Seen by a Provider: 09:00 Attending Physician María Abraham MD PCP Victoria Cutler Aprn Referring Physician Date of Admission April 06, 2021 at 08:14 Home Medications & Allergies Home Medications Reviewed patient Home Medication Reconciliation performed by pharmacy medication reconciliations central sterilization technician and/or nursing. Patients Allergies have been reviewed. Allergies Allergies Coded Allergies No Known Drug Allergies (Unverified07/15/19) Past Medical/Social/Family Hx Patient Social History Marrital Status: Tobacco Use?: Yes Tobacco type used: Cigarettes Smoking Status: Current Everyday Smoker Substance use?: No Alcohol Use?: No Immunizations Up To Date Influenza Vaccine Up-to-Date: Yes; Up-to-Date Tetanus Booster (TDap): Unknown Date of Pneumonia Vaccine: Jan 20, 2018 Current Status Advance Directives: No Communicates: Verbally Primary Language: Nepali Preferred Spoken Language: Nepali Is interpretation needed?: No Past Medical History Dementia Chronic kidney disease Family Medical History Family Hx: Unknown Review of Systems Constitutional: no symptoms reported EENTM: no symptoms reported Respiratory: short of breath Cardiovascular: no symptoms reported Gastrointestinal: no symptoms reported Genitourinary: no symptoms reported Musculoskeletal: no symptoms reported Skin: no symptoms reported Psychiatric/Neurological: No Symptoms Reported Physical Exam Physical Exam Vital Signs Vital Signs - First Documented 04/06/21 04/06/21 05:12 08:15 Temp 36.1 Pulse 150 Resp 30 B/P (MAP) 128/78 (95) Pulse Ox 84 O2 Delivery Nasal Cannula O2 Flow Rate 6.00 FiO2 30 Capillary Refill : Greater Than 3 Seconds Height, Weight, BMI Height: 5'11.00" Weight: 197lbs. 4.0oz. 89.528744mp; 23.07 BMI Method:Actual General Appearance: Moderate Distress (Wearing BiPAP), Obese Neck: Normal Inspection, Supple Respiratory: Crackles, Respiratory Distress (Wearing BiPAP), Wheezing Cardiovascular: No Murmur, Tachycardia (Regular rhythm) Gastrointestinal: Normal Bowel Sounds, Non Tender, Soft Extremity: Normal Inspection, Non Tender, Pedal Edema Neurologic/Psychiatric: Alert, No Motor/Sensory Deficits, Disoriented Skin: Normal Color, Warm/Dry Results Results/Procedures Labs Laboratory Tests 04/06/21 09:18 04/06/21 12:38 Patient resulted labs reviewed. Imaging: Reviewed Imaging Report Assessment/Plan Admission Diagnosis Acute respiratory failure with hypoxia and hypercapnia Admission Status: Inpatient Order (span 2 midnights) Reason for Inpatient Admission: Respiratory failure requiring BiPAP Assessment and Plan Acute respiratory failure with hypoxia and hypercapnia NSTEMI CKD3b Dementia Initial ABG showed pH 7.2, CO2 57 Started on BiPAP Initial troponin normal, trended up to 0.46, up to >23 this morning Cardiology consulted Recommended proceeding with left heart cath with respiratory failure and rapidly increasing troponin levels despite kidney failure Left heart cath showed severe multivessel disease Cardiology stated patient not a candidate for CABG, recommending medical management Gentle fluids post-cath in setting of kidney failure Possible pneumonia WBC and Procal normal Chest xray with possible infiltrate Started on Rocephin and Azithromycin Elevated blood sugar Blood sugar >400 on arrival Sliding scale insulin Add on A1C DVT prophylaxis: Lovenox Diagnosis/Problems Diagnosis/Problems (1) Acute respiratory failure with hypoxia and hypercapnia Status: Acute (2) NSTEMI (non-ST elevation myocardial infarction) Status: Acute (3) Multiple vessel coronary artery disease (4) Pulmonary edema Status: Acute (5) Pneumonia Status: Acute Qualifiers: Pneumonia type: due to unspecified organism Laterality: right Lung location: middle lobe of lung Qualified Codes: J18.9 - Pneumonia, unspecified organism (6) Elevated blood sugar Status: Acute (7) CKD (chronic kidney disease) stage 3, GFR 30-59 ml/min Status: Chronic Qualifiers: Chronic kidney disease stage 3 subtype: stage 3b (GFR 30-44) Qualified Codes: N18.32 - Chronic kidney disease, stage 3b (8) Dementia Status: Chronic Qualifiers: Dementia type: unspecified type Dementia behavioral disturbance: without behavioral disturbance Qualified Codes: F03.90 - Unspecified dementia without behavioral disturbance PABLO SINCLAIR MD April 06, 2021 15:02
[2021-04-06] MEDS ORDERED: CLOP75TA28 PO (16:11)
[2021-04-06] MEDS ORDERED: LISI20TA26 PO (16:11)
[2021-04-06] MEDS ORDERED: TMSL.4C PO (16:11)
[2021-04-06] MEDS ORDERED: NABU500T8 PO (16:11)
[2021-04-06] MEDS ORDERED: LINA5TAB PO (16:11)
[2021-04-06] MEDS ORDERED: DONE5TAB30 PO (16:11)
[2021-04-06] MEDS ORDERED: FINA5TAB6 PO (16:11)
[2021-04-06] MEDS ORDERED: AMLO-250 PO (16:11)
[2021-04-06] MEDS ORDERED: LIRA0.6P3 SC (16:11)
[2021-04-06] MEDS ORDERED: MONT10TA32 PO (16:11)
[2021-04-06] MEDS ORDERED: SIMV40TA25 PO (16:12)
[2021-04-06] MEDS: FUROSEMIDE 40 MG/4 ML INJ (LASIX) IVP SCH (16:56)
[2021-04-06] MEDS ORDERED: LACTATED RINGERS 1,000 ML IV ONE (17:30)
[2021-04-06 19:09] VITALS: BP 103/73
[2021-04-06 22:11] VITALS: BP 123/88
[2021-04-07] MEDS: NS IV 1000 ML 1,000 ML IV SCH (00:55)
[2021-04-07] MEDS: RT-ALBUTEROL/IPRATROPIUM 3 ML (DUONEB) VIAL INH SCH ×4 (02:09→14:43)
[2021-04-07 02:13] VITALS: BP 114/79
[2021-04-07 03:16] LABS: ABG BASE EXCESS -1.2 MMOL/L (-2.5-2.5); ABG OXYGEN SATURATION 90 % (94-100); ABG PCO2 44 MMHG (35-45); ABG PH 7.35 (7.37-7.43); ABG PO2 67 MMHG (79-93)
[2021-04-07 03:21] LABS: INSPIRED O2 25%; PATIENT TEMP 98.6; VENTILATOR NO
[2021-04-07] MEDS: inSUlin ASPART (NovoLOG) 1 UNIT/0.01 ML (CHARGE PER UNIT) SC SCH ×3 (03:41→11:59)
--- NOTE | 2021-04-07 04:01 | Pulmonary Progress Note ---
HERIBERTO AUSTIN MED STUDENT 04/07/21 0401: Subjective Date Seen by a Provider: April 07, 2021 Time Seen by a Provider: 03:57 Subjective/Events-last exam Patient remains on BIPAP currently. Arouses to verbal stimulation but falls back asleep immediately. Review of Systems General: No Chills, No Night Sweats HEENT: No Head Aches, No Visual Changes Pulmonary: No Dyspnea, No Cough Cardiovascular: No: Chest Pain, Palpitations Gastrointestinal: No: Nausea, Vomiting Genitourinary: No Dysuria, No Frequency Musculoskeletal: No: neck pain, back pain Neurological: No: Weakness, Numbness Sepsis Event Evaluation Height, Weight, BMI Height: 5'11.00" Weight: 197lbs. 4.0oz. 89.315597po; 23.07 BMI Method:Actual Focused Exam Lactate Level 04/06/21 12:38: Lactic Acid Level 2.31*H 04/06/21 16:40: Lactic Acid Level 2.33*H 04/06/21 20:38: Lactic Acid Level 1.80 Exam Exam Vital Signs Date Time Temp Pulse Resp B/P (MAP) Pulse Ox O2 Delivery O2 Flow Rate FiO2 04/07/21 03:43 NIV Bilevel 25 04/07/21 02:13 115 24 100 25.00 04/07/21 01:00 115 04/07/21 00:38 36.4 22 97 NIV Bilevel 25.00 04/06/21 23:59 NIV Bilevel 25 04/06/21 23:33 98 22 106/62 (77) 95 NIV Bilevel 25.00 04/06/21 22:38 129 27 113/50 (71) 95 NIV Bilevel 25.00 04/06/21 22:11 106 20 100 25.00 04/06/21 21:38 94 23 126/75 (92) 95 NIV Bilevel 25.00 04/06/21 20:38 105 22 113/63 (80) 95 NIV Bilevel 25.00 04/06/21 20:00 36.3 04/06/21 20:00 NIV Bilevel 25 04/06/21 19:09 97 20 95 25.00 04/06/21 19:00 106 18 115/67 (83) 95 NIV Bilevel 25.00 04/06/21 19:00 106 04/06/21 18:00 94 21 105/66 (79) 92 NIV Bilevel 25.00 04/06/21 17:00 96 20 112/70 (84) 91 NIV Bilevel 25.00 04/06/21 16:00 36.2 04/06/21 16:00 99 14 113/65 (81) 97 NIV Bilevel 25.00 04/06/21 16:00 NIV Bilevel 25 04/06/21 15:00 96 41 107/66 (80) 97 NIV Bilevel 25.00 04/06/21 14:49 96 21 98 25.00 04/06/21 14:45 90 16 104/69 (81) 95 NIV Bilevel 25.00 04/06/21 14:00 104 29 102/68 (79) 95 NIV Bilevel 25.00 04/06/21 13:45 95 13 104/70 (81) 86 NIV Bilevel 25.00 04/06/21 13:15 94 16 100/58 (72) 97 NIV Bilevel 25.00 04/06/21 13:00 94 33 107/70 (82) 97 NIV Bilevel 25.00 04/06/21 12:49 90 04/06/21 12:45 93 18 102/64 (77) 95 NIV Bilevel 25.00 04/06/21 12:30 101 21 106/64 (78) 100 NIV Bilevel 25.00 04/06/21 12:15 97 103/61 (75) 92 NIV Bilevel 25.00 04/06/21 12:14 NIV Bilevel 25.00 04/06/21 12:10 35.9 04/06/21 12:00 104/55 (71) 96 NIV Bilevel 30.00 04/06/21 12:00 NIV Bilevel 25 04/06/21 11:45 106/62 (77) NIV Bilevel 30.00 04/06/21 11:00 104 16 128/79 (95) 98 NIV Bilevel 30.00 04/06/21 10:19 98 23 97 30.00 04/06/21 10:00 99 24 121/71 (88) 99 NIV Bilevel 30.00 04/06/21 09:44 36.4 107 93 04/06/21 09:00 101 22 122/73 (89) 93 NIV Bilevel 30.00 04/06/21 08:39 36.4 107 20 118/82 (94) 93 NIV Bilevel 30.00 04/06/21 08:37 108 21 94 30.00 04/06/21 08:22 122 04/06/21 08:15 NIV Bilevel 30 04/06/21 06:49 116 28 100/59 99 NIV Bilevel 04/06/21 06:34 115 26 98/57 99 NIV Bilevel 04/06/21 05:35 80.00 04/06/21 05:12 36.1 150 30 128/78 (95) 84 Nasal Cannula 6.00 I & O 04/07/21 07:00 Intake Total 3500 ml Output Total 1900 ml Balance 1600 ml Height & Weight Height: 5'11.00" Weight: 197lbs. 4.0oz. 89.444597hb; 23.07 BMI Method:Actual General Appearance: Mild Distress, Obese HEENT: PERRL/EOMI, Moist Mucous Membranes; No Scleral Icterus (L), No Scleral Icterus (R) Neck: Normal Inspection, Non Tender Respiratory: No Accessory Muscle Use, Crackles (bilaterally), Respiratory Distress ( BiPAP) Cardiovascular: No Murmur, Normal Peripheral Pulses, Tachycardia (Regular rhythm) Capillary Refill: Greater Than 3 Seconds Peripheral Pulses: 1+ Dorsalis Pedis (R), 1+ Left Dors-Pedis (L); 2+ Radial Pulses (R), 2+ Radial Pulses (L) Gastrointestinal: normal bowel sounds, non tender, soft; No distended, No guarding, No rebound Extremity: Normal Inspection, Non Tender, Pedal Edema (trace) Neurologic/Psychiatric: Alert, No Motor/Sensory Deficits, Other (lethargic) Skin: Normal Color, Warm/Dry Lymphatic: No Adenopathy Results Lab Laboratory Tests 04/06/21 09:18 04/06/21 12:38 Assessment/Plan Assessment/Plan Acute respiratory failure -Currently requiring BiPAP 15/7 and 25% -ABG this am improved -Duoneb Q4hr CHF -elevated pro BNP of 1493 -BNP 254 -lasix 40mg QD Pulmonary edema r/o PNA -rocephin and zithromax coverage -PCT is negative. No leukocytosis -BIPAP, titrate as tolerated -lasix 40mg QD Elevated troponin- NSTEMI s/p Cath -trended upward from 0.46 to 23.884 yesterday -cardiology following -continue to monitor Leukocytosis -WBC up to 12.2 today -continue to monitor Hypokalemia- -Replete today CAD -ASA and plavix -s/p left heart cath yesterday -revealed multivessel coronary artery disease, not a CABG candidate per cardiology given underlying health -maximize medical mgmt per cardiology Hyperkalemia -continue to monitor Acute on chronic renal failure -creatinine 2.26 yesterday to ? today -continue to monitor COPD -continue to monitor Insulin dependent diabetes mellitus -blood glucoses 140-190's, improving -SSI -monitor HTN -monitor GI Prophylaxis -protonix YASMEEN PENA DO 04/07/21 0555: Assessment/Plan Assessment/Plan Acute respiratory failure -Currently requiring BiPAP 28/05 and 25% -Trial pt to Vapotherm -Hold IVF -ABG this am improved -Duoneb Q4hr CHF -elevated pro BNP of 1493 -BNP 254 -lasix 40mg QD Pulmonary edema r/o PNA -rocephin and zithromax coverage -PCT is negative. No leukocytosis -BIPAP, titrate as tolerated -lasix 40mg QD Elevated troponin- NSTEMI s/p Cath -trended upward from 0.46 to 23.884 yesterday -cardiology following -continue to monitor Leukocytosis -WBC up to 12.2 today -continue to monitor Hypokalemia- -Replete today CAD -ASA and plavix -s/p left heart cath yesterday -revealed multivessel coronary artery disease, not a CABG candidate per cardiology given underlying health -maximize medical mgmt per cardiology Hyperkalemia -continue to monitor Acute on chronic renal failure -creatinine 2.26 yesterday to ? today -continue to monitor COPD -continue to monitor Insulin dependent diabetes mellitus -blood glucoses 140-190's, improving -SSI -monitor HTN -monitor GI Prophylaxis -protonix Supervisory-Addendum Brief Verification & Attestation Participated in pt care: history, MDM, physical Personally performed: exam, history, MDM, supervision of care Care discussed with: Medical Student Procedures: n/a Results interpretation: Verified all documentation Verification and Attestation of Medical Student E/M Service A medical student performed and documented this service in my presence. I reviewed and verified all information documented by the medical student and made modifications to such information, when appropriate. I personally performed the physical exam and medical decision making. Yasmeen Pena, April 09, 2021,12:31 HERIBERTO AUSTIN MED STUDENT April 07, 2021 04:01 YASMEEN PENA DO April 07, 2021 05:55
[2021-04-07 04:37] LABS: BASOPHILS % (AUTO) 0 % (0-10); EOSINOPHILS % (AUTO) 0 % (0-10); MEAN CORPUSCULAR VOLUME 100 fL (80-99); MONOCYTES % (AUTO) 8 % (0-12)
[2021-04-07 04:39] LABS: HEMATOCRIT 32 % (40-54); HEMOGLOBIN 10.1 g/dL (13.3-17.7); LYMPHOCYTES # (AUTO) 0.7 10^3/uL (1.0-4.0); LYMPHOCYTES % (AUTO) 6 % (12-44); MEAN CORPUSCULAR HEMOGLOBIN 32 pg (25-34); MEAN CORPUSCULAR HGB CONC 32 g/dL (32-36); MEAN PLATELET VOLUME 9.1 fL (9.0-12.2); NEUTROPHILS # (AUTO) 10.5 10^3/uL (1.8-7.8); NEUTROPHILS % (AUTO) 86 % (42-75); PLATELET COUNT 139 10^3/uL (130-400); WHITE BLOOD COUNT 12.2 10^3/uL (4.3-11.0)
[2021-04-07 04:48] LABS: ALBUMIN 2.7 GM/DL (3.2-4.5); POTASSIUM 3.5 MMOL/L (3.6-5.0)
[2021-04-07 04:49] LABS: CALCIUM 6.4 MG/DL (8.5-10.1)
[2021-04-07 04:51] LABS: TOTAL PROTEIN 4.3 GM/DL (6.4-8.2)
[2021-04-07 04:52] LABS: BILIRUBIN,TOTAL 0.3 MG/DL (0.1-1.0)
[2021-04-07 04:54] LABS: PHOSPHORUS 2.3 MG/DL (2.3-4.7)
[2021-04-07 04:55] LABS: CREATININE SERUM 1.21 MG/DL (0.60-1.30)
[2021-04-07 04:57] LABS: MAGNESIUM 1.3 MG/DL (1.6-2.4)
[2021-04-07] MEDS ORDERED: MAGNESIUM 1 GM/100 ML IVPB 100 ML IV SCH (06:00)
[2021-04-07] MEDS ORDERED: KCL 20 MEQ TAB (K-DUR) PO SCH (06:00)
[2021-04-07] MEDS ORDERED: POTASSIUM CL 10MEQ/50ML IVPB 50 ML IV SCH (06:00)
[2021-04-07 06:48] VITALS: BP 122/71
[2021-04-07] MEDS: CLOPIDOGREL 75 MG (PLAVIX) TABLET PO SCH (07:40)
[2021-04-07] MEDS: FUROSEMIDE 40 MG/4 ML INJ (LASIX) IVP SCH (07:40)
--- NOTE | 2021-04-07 07:44 | Diagnostic Imaging Report ---
INDICATION: Pulmonary edema, pneumonia, follow-up. TECHNIQUE: Single view chest 2:36 AM. CORRELATION STUDY: 04/06/2021 FINDINGS: Heart size is within normal limits. Vasculature is mildly congested. Bilateral pulmonary opacities are again demonstrated. Most pronounced in the right mid and lower lung field. IMPRESSION: 1. Bilateral pulmonary opacities right significantly greater than left. There has been some change in the distribution of the opacities may reflect asymmetric edema versus a multifocal pneumonia. Overall appears to be generally adversely changed from prior. Dictated by: Dictated on workstation # [id number]
[2021-04-07] MEDS ORDERED: cefTRIAXone 1,000 MG/SWFI 10 ML IV PUSH IV SCH ×2 (08:00)
[2021-04-07] MEDS ORDERED: PANTOPRAZOLE 40 MG (PROTONIX) TAB PO SCH (09:00)
[2021-04-07] MEDS ORDERED: AZITHROMYCIN 250 MG/NS 250 ML IVPB IV SCH ×2 (09:00)
[2021-04-07] MEDS ORDERED: ASPIRIN E.C. 81 MG (ECOTRIN) TAB PO SCH (09:00)
[2021-04-07 10:39] VITALS: BP 121/69
--- NOTE | 2021-04-07 12:19 | Progress Note ---
Subjective Subjective/Events-last exam Tried switching to vapotherm this morning, but didn't tolerate that and is back on bipap. He is able to answer questions in short sentences, but difficult to understand. Focused Exam Lactate Level 04/06/21 12:38: Lactic Acid Level 2.31*H 04/06/21 16:40: Lactic Acid Level 2.33*H 04/06/21 20:38: Lactic Acid Level 1.80 Objective Exam Last Set of Vital Signs Vital Signs Date Time Temp Pulse Resp B/P (MAP) Pulse Ox O2 Delivery O2 Flow Rate FiO2 04/07/21 11:55 36.5 04/07/21 11:08 NIV Bilevel 30 04/07/21 11:00 120 34 123/60 (81) 93 30.00 Capillary Refill : Greater Than 3 Seconds I&O Intake and Output 04/07/21 00:00 Intake Total 2915 ml Output Total 1600 ml Balance 1315 ml Intake Oral 500 ml IV Total 2415 ml Output Urine Total 1600 ml Daily Weight Change Unsure General: Alert, Moderate Distress Lungs: Other (ronchi, decreased air movement, using abdominal muscles to breathe) Heart: Other (tachycardic) Psych/Mental Status: Other (drowsy but arousable, answers questions with brief but appropriate answers) Results/Procedures Lab Laboratory Tests 04/06/21 12:38: White Blood Count 9.6, Red Blood Count 4.21L, Hemoglobin 13.3, Hematocrit 42, Mean Corpuscular Volume 99, Mean Corpuscular Hemoglobin 32, Mean Corpuscular Hemoglobin Concent 32, Red Cell Distribution Width 14.8H, Platelet Count 162, Mean Platelet Volume 9.2, Immature Granulocyte % (Auto) 1, Neutrophils (%) (Auto) 90H, Lymphocytes (%) (Auto) 5L, Monocytes (%) (Auto) 4, Eosinophils (%) ( Auto) 0, Basophils (%) (Auto) 0, Neutrophils # (Auto) 8.6H, Lymphocytes # (Auto) 0.5L, Monocytes # (Auto) 0.4, Eosinophils # (Auto) 0.0, Basophils # (Auto) 0.0, Immature Granulocyte # (Auto) 0.1, Sodium Level 137, Potassium Level 5.5H, Chloride Level 104, Carbon Dioxide Level 24, Anion Gap 9, Blood Urea Nitrogen 39H, Creatinine 2.12H, Estimat Glomerular Filtration Rate 30, BUN/Creatinine Ratio 18, Glucose Level 322H, Mean Blood Glucose 166H, Hemoglobin A1c 7.4H, Lactic Acid Level 2.31*H, Calcium Level 9.2, Corrected Calcium 9.4, Phosphorus Level 3.3, Magnesium Level 1.8, Total Bilirubin 0.3, Aspartate Amino Transf (AST/SGOT) 118H, Alanine Aminotransferase (ALT/SGPT) 34, Alkaline Phosphatase 73, Total Protein 6.3L, Albumin 3.8 04/06/21 15:57: Glucometer 167H 04/06/21 16:40: Lactic Acid Level 2.33*H 04/06/21 20:21: Glucometer 140H 04/06/21 20:38: Lactic Acid Level 1.80 04/06/21 23:36: Glucometer 190H 04/07/21 03:00: Blood Gas Puncture Site L RADIAL, Blood Gas Patient Temperature 98.6, Arterial Blood pH 7.35L, Arterial Blood Partial Pressure CO2 44, Arterial Blood Partial Pressure O2 67L, Arterial Blood HCO3 24, Arterial Blood Total CO2 25.0, Arterial Blood Oxygen Saturation 90L, Arterial Blood Base Excess -1.2, Malvin Test NA, Blood Gas Ventilator Setting NO, Blood Gas Inspired Oxygen 25%, Procalcitonin 0.10H 04/07/21 03:30: Glucometer 177H 04/07/21 04:30: White Blood Count 12.2H, Red Blood Count 3.18L, Hemoglobin 10.1#L, Hematocrit 32L, Mean Corpuscular Volume 100H, Mean Corpuscular Hemoglobin 32, Mean Corpuscular Hemoglobin Concent 32, Red Cell Distribution Width 15.1H, Platelet Count 139, Mean Platelet Volume 9.1, Immature Granulocyte % (Auto) 1, Neutrophils (%) (Auto) 86H, Lymphocytes (%) (Auto) 6L, Monocytes (%) (Auto) 8, Eosinophils (%) (Auto) 0, Basophils (%) (Auto) 0, Neutrophils # (Auto) 10.5H, Lymphocytes # (Auto) 0.7L, Monocytes # (Auto) 1.0, Eosinophils # (Auto) 0.0, Basophils # (Auto) 0.0, Immature Granulocyte # (Auto) 0.1, Percent Immature Platelet Fraction 1.0, Sodium Level 142, Potassium Level 3.5L, Chloride Level 115#H, Carbon Dioxide Level 18L, Anion Gap 9, Blood Urea Nitrogen 32H, Creatinine 1.21, Estimat Glomerular Filtration Rate 58, BUN/Creatinine Ratio 26, Glucose Level 138H, Calcium Level 6.4L, Corrected Calcium 7.4L, Phosphorus Level 2.3, Magnesium Level 1.3L, Total Bilirubin 0.3, Aspartate Amino Transf (AST/SGOT) 63H, Alanine Aminotransferase (ALT/SGPT) 23, Alkaline Phosphatase 45, Troponin I 19.522*H, Total Protein 4.3L, Albumin 2.7L, Triglycerides Level 160H, Cholesterol Level 91, LDL Cholesterol Direct 40, VLDL Cholesterol 32, HDL Cholesterol 27L 04/07/21 07:56: Glucometer 243H 04/07/21 11:56: Glucometer 154H Assessment/Plan Assessment/Plan (1) Acute respiratory failure with hypoxia and hypercapnia Status: Acute Assessment & Plan: Multifactorial secondary to NSTEMI with pulmonary edema, COPD and pneumonia. Continuing to worsen in spite of antibiotics, diuretics and bipap use. Discussed with patient and daughter and he clearly indicates he does not want intubation, and daughter agrees. (2) NSTEMI (non-ST elevation myocardial infarction) Status: Acute Assessment & Plan: Had cath done 04/06 which showed severe multi-vessel total occlusions, not expected to be able to tolerate bypass. Could possibly undergo other complex intervention per Dr. Hansen, discussed with patient and daughter and patient wants to focus on comfort even if it means end of life is near. (3) CKD (chronic kidney disease) stage 3, GFR 30-59 ml/min Status: Chronic Qualifiers: Qualified Codes: N18.32 - Chronic kidney disease, stage 3b (4) Pulmonary edema Status: Acute Assessment & Plan: IV lasix Qualifiers: Qualified Codes: J81.0 - Acute pulmonary edema (5) Pulmonary edema cardiac cause Status: Acute (6) Pneumonia Status: Acute Assessment & Plan: Azithromycin and ceftriaxone Qualifiers: Qualified Codes: J18.9 - Pneumonia, unspecified organism (7) Dementia Status: Chronic Assessment & Plan: Per outpatient chart review, has been worsening recently and he is dependent in most activities except ambulating with walker to the bathroom. Qualifiers: Qualified Codes: F03.90 - Unspecified dementia without behavioral disturbance (8) Diabetes mellitus, type 2 Status: Chronic (9) Hypertension Status: Chronic (10) Multiple vessel coronary artery disease Status: Chronic (11) COPD (chronic obstructive pulmonary disease) Status: Chronic (12) Goals of care, counseling/discussion Status: Acute Assessment & Plan: Discussed with patient and daughter this morning that if aggressive care is to be pursued, would likely need intubation for respiratory stabilization in order to transfer to another facility for possible complex cardiac intervention. Given his underlying severe COPD, multi-vessel coronary artery severe occlusions, worsening dementia and the patient's expression of desire to be made comfortable even if that means imminent , daughter in agreement as well that comfort goals are appropriate. Will change code status as requested, but will continue bipap for now while waiting for family. RALPH ROJAS MD April 07, 2021 12:19
[2021-04-07] MEDS ORDERED: BISACODYL 10 MG SUPP (DULCOLAX) PR PRN (13:45)
[2021-04-07] MEDS ORDERED: PROMETHAZINE INJ 25 MG/ML (PHENERGAN) AMP IVP PRN (13:45)
[2021-04-07] MEDS ORDERED: ACETAMINOPHEN 650 MG SUPP (TYLENOL) PR PRN (13:45)
[2021-04-07] MEDS ORDERED: RT-ALBUTEROL/IPRATROPIUM 3 ML (DUONEB) VIAL INH PRN (13:45)
[2021-04-07] MEDS ORDERED: ARTIFICAL TEARS 0.4 ML UNIT DOSE (REFRESH PLUS) OU PRN (13:45)
[2021-04-07] MEDS ORDERED: SALIVA STIMULANT MOUTH SPRAY (BIOTENE) 1.5 OZ MM PRN (13:45)
[2021-04-07] MEDS ORDERED: ONDANSETRON 4 MG/2 ML (SDV) Z0FRAN IVP PRN (13:45)
[2021-04-07] MEDS: LORazepam INJ 2 MG/ML (ATIVAN) VIAL IVP PRN ×4 (14:56→22:39)
[2021-04-07] MEDS: morphine INJ 4 MG/ML 1 ML (VIAL/SYRINGE) IV PRN ×4 (14:56→22:39)
[2021-04-07] MEDS: GLYCOPYRROLATE 0.2 MG/ML (ROBINUL) 2 ML VIAL IV PRN ×2 (17:51→20:33)
[2021-04-08] MEDS: morphine INJ 4 MG/ML 1 ML (VIAL/SYRINGE) IV PRN ×2 (00:49→03:01)
[2021-04-08] MEDS: LORazepam INJ 2 MG/ML (ATIVAN) VIAL IVP PRN ×2 (00:50→03:01)
--- NOTE | 2021-04-08 07:49 | Discharge Summary ---
Discharge Summary Hospital Course Problems/Diagnosis: (1) Acute respiratory failure with hypoxia and hypercapnia Status: Acute Assessment & Plan: Multifactorial secondary to NSTEMI with pulmonary edema, COPD and pneumonia. Continuing to worsen in spite of antibiotics, diuretics and bipap use. Discussed with patient and daughter and he clearly indicates he does not want intubation and would prefer to be comfortable, and daughter agrees. Given this, he stayed on bipap until family able to arrive, and afterward goals were changed to comfort and a few hours later. (2) NSTEMI (non-ST elevation myocardial infarction) Status: Acute Assessment & Plan: Had cath done 04/06 which showed severe multi-vessel total occlusions, not expected to be able to tolerate bypass. Could possibly undergo other complex intervention per Dr. Hansen, discussed with patient and daughter and patient wanted to focus on comfort even if it means end of life is near. (3) CKD (chronic kidney disease) stage 3, GFR 30-59 ml/min Status: Chronic Qualifiers: Qualified Codes: N18.32 - Chronic kidney disease, stage 3b (4) Pulmonary edema Status: Acute Assessment & Plan: IV lasix was used until comfort goals initiated. Qualifiers: Qualified Codes: J81.0 - Acute pulmonary edema (5) Pulmonary edema cardiac cause Status: Acute (6) Pneumonia Status: Acute Assessment & Plan: Azithromycin and ceftriaxone were given until goals changed to comfort. Qualifiers: Qualified Codes: J18.9 - Pneumonia, unspecified organism (7) Dementia Status: Chronic Assessment & Plan: Per outpatient chart review, has been worsening recently and he was dependent in most activities except ambulating with walker to the bathroom. Qualifiers: Qualified Codes: F03.90 - Unspecified dementia without behavioral disturbance (8) Diabetes mellitus, type 2 Status: Chronic (9) Hypertension Status: Chronic Qualifiers: Qualified Codes: I10 - Essential (primary) hypertension (10) Multiple vessel coronary artery disease Status: Chronic (11) COPD (chronic obstructive pulmonary disease) Status: Chronic (12) Goals of care, counseling/discussion Status: Acute Assessment & Plan: Discussed with patient and daughter this morning that if aggressive care is to be pursued, would likely need intubation for respiratory stabilization in order to transfer to another facility for possible complex cardiac intervention. Given his underlying severe COPD, multi-vessel coronary artery severe occlusions, worsening dementia and the patient's expression of desire to be made comfortable even if that means imminent , daughter in agreement as well that comfort goals are appropriate and this was done per patient request. Hospital Course Date of Admission: April 06, 2021 at 08:14 Admission Diagnosis : Family Physician/Provider: Victoria Cutler Aprn Date of Discharge: 04/08/21 Discharge Diagnosis: See problem list Hospital Course: See problem list Labs and Pending Lab Test: Laboratory Tests 04/07/21 07:56: Glucometer 243H 04/07/21 11:56: Glucometer 154H Microbiology 04/06/21 MRSA Screen - Final, Complete No growth 04/06/21 Blood Culture - Preliminary, Resulted No growth Home Meds Active Reported Simvastatin 40 Mg Tablet 40 Mg PO HS Montelukast Sodium 10 Mg Tablet 10 Mg PO HS Lisinopril 20 Mg Tablet 20 Mg PO DAILY Flomax (Tamsulosin HCl) 0.4 Mg Cap 0.4 Mg PO DAILY Finasteride 5 Mg Tablet 5 Mg PO DAILY Clopidogrel (Clopidogrel Bisulfate) 75 Mg Tablet 75 Mg PO DAILY Donepezil HCl 5 Mg Tablet 5 Mg PO HS Tradjenta (Linagliptin) 5 Mg Tablet 5 Mg PO DAILY Victoza 3-Justin (Liraglutide) 0.6 Mg/0.1 Ml Pen.injctr 1.2 Mg SC DAILY Amlodipine Besylate 5 Mg Tablet 5 Mg PO DAILY Nabumetone 500 Mg Tablet 500 Mg PO BID Assessment/Pt DC Instructions See problem list Discharge Physical Examination Allergies: Coded Allergies: No Known Drug Allergies (Unverified , 07/15/19) Discharge Summary Date of Admission April 06, 2021 at 08:14 Date of Discharge April 08, 2021 at 05:58 Discharge Date: April 08, 2021 Admission Diagnosis Acute respiratory failure with hypoxia and hypercapnia Comfort Measures/ End of Life Care: Comfort Measures Advance Care discuss with: patient, family member (s) Date of : April 08, 2021 Time of : 05:58 Discharge Diagnosis (1) Acute respiratory failure with hypoxia and hypercapnia Status: Acute (2) NSTEMI (non-ST elevation myocardial infarction) Status: Acute (3) Multiple vessel coronary artery disease Status: Chronic (4) Pulmonary edema Status: Acute Qualifiers: Qualified Codes: J81.0 - Acute pulmonary edema (5) Pneumonia Status: Acute Qualifiers: Qualified Codes: J18.9 - Pneumonia, unspecified organism (6) Elevated blood sugar Status: Acute (7) CKD (chronic kidney disease) stage 3, GFR 30-59 ml/min Status: Chronic Qualifiers: Qualified Codes: N18.32 - Chronic kidney disease, stage 3b (8) Dementia Status: Chronic Qualifiers: Qualified Codes: F03.90 - Unspecified dementia without behavioral disturbance RALPH ROJAS MD April 08, 2021 07:49
== END 2021-04-08 05:58 | disposition expired ==
LOC: EDUNIT# 05:02 → ER FS 05:14 → ICU 08:14 → 4TH 04-07 17:12
PROVIDERS: ADMIT Family Medicine; ATTEND Family Medicine
PROC: 4A023N7 Measurement of Cardiac Sampling and Pressure, Left Heart, Percutaneous Approach (ICD-10-PCS; principal; 2021-04-06)
PROC: B2111ZZ Fluoroscopy of Multiple Coronary Arteries using Low Osmolar Contrast (ICD-10-PCS; 2021-04-06)
PROC: 5A09457 Assistance with Respiratory Ventilation, 24-96 Consecutive Hours, Continuous Positive Airway Pressure (ICD-10-PCS; 2021-04-06)
DX: I21.4 Non-ST elevation (NSTEMI) myocardial infarction (principal); J96.01 Acute respiratory failure with hypoxia; I50.21 Acute systolic (congestive) heart failure; J18.9 Pneumonia, unspecified organism; N17.0 Acute kidney failure with tubular necrosis; J96.02 Acute respiratory failure with hypercapnia; J44.0 Chronic obstructive pulmonary disease with (acute) lower respiratory infection; Z51.5 Encounter for palliative care; Z66 Do not resuscitate; I13.0 Hypertensive heart and chronic kidney disease with heart failure and stage 1 through stage 4 chronic kidney disease, or unspecified chronic kidney disease; E11.22 Type 2 diabetes mellitus with diabetic chronic kidney disease; E11.65 Type 2 diabetes mellitus with hyperglycemia; N18.32 Chronic kidney disease, stage 3b; E87.5 Hyperkalemia; E78.5 Hyperlipidemia, unspecified; E78.00 Pure hypercholesterolemia, unspecified; F03.90 Unspecified dementia, unspecified severity, without behavioral disturbance, psychotic disturbance, mood disturbance, and anxiety; E87.6 Hypokalemia; N40.0 Benign prostatic hyperplasia without lower urinary tract symptoms; F17.210 Nicotine dependence, cigarettes, uncomplicated; Z79.4 Long term (current) use of insulin; Z79.52 Long term (current) use of systemic steroids; Z86.73 Personal history of transient ischemic attack (TIA), and cerebral infarction without residual deficits
CPT/HCPCS: 36415; 71045; 80048; 80053; 80061; 82805; 82947; 83036; 83605; 83735; 83880; 84100; 84145; 84484; 85007; 85025; 85027; 87040; 87081; 93005; 93306; 93458; 94640; 94660